=== PATIENT | female | born 1975 | race Caucasian/White ===

== ENCOUNTER 2018-03-02 06:13 | Inpatient (IN) | payer BC ==
[~2018-03-02 06:13] MED LIST: Buffered Lidocaine 0.9% SYRIN* 5 ML/SYR SYRINGE INTRADERM ONE; Dexamethasone IV* 4 MG/ML 1 ML (4 MG) IV SLOW PU ONE; Famotidine TAB* 20 MG PO ONE; Metoclopramide IV* 5 MG/ML 2 ML VIAL IV SLOW PU ONE
[2018-03-02] MEDS ORDERED: Metoclopramide IV* 5 MG/ML 2 ML VIAL ONE (06:23)
[2018-03-02] MEDS ORDERED: Famotidine TAB* 20 MG ONE (06:23)
[2018-03-02] MEDS ORDERED: Dexamethasone IV* 4 MG/ML 1 ML (4 MG) ONE (06:23)
[2018-03-02] MEDS ORDERED: NS 0.9% 50 ML* 50 ML with ceFOXitin(*) 2 GM IVPB ONE ×2 (07:00)
[2018-03-02] MEDS ORDERED: Bupivacaine 0.5%* 50 ML VIAL ONE (07:05)
[2018-03-02] MEDS ORDERED: Rocuronium* 10 MG/ML VIAL ONE (07:20)
[2018-03-02] MEDS ORDERED: fentaNYL* 50 MCG/ML 2 ML VIAL (100 MCG VIAL) ONE (07:20)
[2018-03-02] MEDS ORDERED: Midazolam* 1 MG/ML 2 ML VIAL (2 MG) ONE ×2 (07:20→07:52)
[2018-03-02] MEDS ORDERED: HYDROmorphone INJ* 1 MG/ML CARPUJECT SYRINGE ONE (07:55)
[2018-03-02] MEDS ORDERED: VASOPRESSIN 20 UNITS/ML 1 ML VIAL ONE ×2 (08:10→08:51)
[2018-03-02] MEDS ORDERED: oxyCODONE TAB* 5 MG TAB PO PRN ×2 (08:16)
[2018-03-02] MEDS ORDERED: Naloxone* 0.4 MG/ML 1 ML VIAL IV PRN (08:16)
[2018-03-02] MEDS ORDERED: Acetaminophen IV 1GM/100ML * 1,000 MG/100 ML VIAL IVPB ONE (08:16)
[2018-03-02] MEDS ORDERED: Scopolamine 1.5 mg* PATCH TRANSDERM PRN (08:16)
[2018-03-02] MEDS ORDERED: fentaNYL* 50 MCG/ML 2 ML VIAL (100 MCG VIAL) IV PRN (08:16)
[2018-03-02] MEDS ORDERED: HYDROmorphone INJ* 1 MG/ML CARPUJECT SYRINGE IV PRN (08:16)
[2018-03-02] MEDS ORDERED: Ondansetron INJ* 2 MG/ML VIAL IV PRN ×2 (08:16→10:06)
[2018-03-02] MEDS ORDERED: PROCHLORPERAZINE INJ 5 MG/ML 2 ML VIAL IV PRN (08:16)
[2018-03-02] MEDS ORDERED: diPHENhydraMINE IV* 50 MG/ML 1 ml VIAL (BENADRYL) IV PRN (08:16)
[2018-03-02] MEDS ORDERED: Ondansetron INJ* 2 MG/ML VIAL ONE ×2 (08:25→10:54)
[2018-03-02] MEDS ORDERED: Ketorolac INJ* 30 MG/ML 1 ML VIAL ONE (08:25)
[2018-03-02] MEDS ORDERED: Sugammadex * 200 MG/2 ML VIAL IV PUSH ONE (09:12)
[2018-03-02] MEDS ORDERED: oxyCODONE/Acetamin 5/325 MG* TAB PO PRN (10:00)
[2018-03-02] MEDS ORDERED: Simethicone TAB* 80 MG TAB.CHEW PO PRN (10:00)
[2018-03-02] MEDS: Ketorolac INJ* 30 MG/ML 1 ML VIAL IV PUSH SCH ×3 (11:59→23:20)
[2018-03-02] MEDS: oxyCODONE/Acetamin 5/325 MG* TAB PO PRN ×2 (14:08→21:32)
[2018-03-03] MEDS: Ketorolac INJ* 30 MG/ML 1 ML VIAL IV PUSH SCH (05:02)
[2018-03-03 05:57] LABS: ABS Basophils 0.1 10^3/ul (0-0.2); ABS Eosinophils 0 10^3/ul (0-0.6); ABS Lymphocytes 1.5 10^3/ul (1.0-4.8); ABS Monocytes 0.9 10^3/ul (0-0.8); ABS Neutrophils 6.2 10^3/ul (1.5-7.7); ABS Nucleated RBC 0 10^3/ul; Eosinophil % 0.2 % (0-6); Hematocrit 38 % (35-47); Hemoglobin 12.9 g/dl (12.0-16.0); Lymphocyte % 17.9 % (25-47); Mean Corpuscular HGB Conc 34 g/dl (31-36); Mean Corpuscular Hemoglobin 29 pg (27-31); Mean Corpuscular Volume 85 fL (80-97); Mean Platelet Volume 7.5 um3 (7.4-10.4); Nucleated Red Blood Cells % 0; Platelet Count 269 10^3/ul (150-450); Red Blood Count 4.42 10^6/ul (4.0-5.4); Red Cell Distribution Width 14 % (10.5-15); White Blood Count 8.6 10^3/ul (3.5-10.8)
[2018-03-03] MEDS: oxyCODONE/Acetamin 5/325 MG* TAB PO PRN ×2 (09:52→16:06)
[2018-03-03] MEDS ORDERED: Ibuprofen TAB* 600 MG PO SCH (12:00)
[2018-03-03 15:36] VITALS: BP 136/80
--- NOTE | 2018-03-03 20:04 | DS ---
DISCHARGE SUMMARY: DATE OF ADMISSION: 03/02/18 DATE OF DISCHARGE: 03/03/18 HOSPITAL COURSE: This patient is a 42-year-old 0, followed in the office with a large fibroid uterus. The patient eventually decided to proceed with hysterectomy. On the day of admission, the patient underwent an uncomplicated abdominal supracervical hysterectomy and bilateral salpingectomy. Operative findings were notable for extremely large uterus that extended up to the ribs. Innumerable fibroids were present of various sizes. Surgery was performed through a midline vertical incision that extended between the pubis and the umbilicus. The surgery went very well and the estimated blood loss was 250 cc. After an uncomplicated recovery, she was transferred to the postoperative [place]. On postoperative day #1, the patient was ambulating, tolerating a regular diet, voiding spontaneously and having excellent pain control with oral pain medications. Considering this, the patient desired to be discharged and she was discharged to home in good condition on postoperative day 1. DISCHARGE PHYSICAL EXAMINATION: Vital signs: Temperature 98.1, pulse 66, respiratory rate 16, blood pressure 136/80. General: The patient is in no acute distress, very comfortable. Seated in a chair. Chest: Clear to auscultation bilaterally. Cardiovascular: Normal sinus rhythm. Abdomen: Soft , modestly tender to palpation with the incision clean, dry and intact with Steri-strips in place. LABORATORY INFORMATION: Postoperative hematocrit 38, white blood cell count 8.6. DISCHARGE MEDICATIONS: Please see the medication reconciliation form. DISCHARGE INSTRUCTIONS: These were reviewed with the patient and written copy was provided as well. Please see the discharge instructions in the chart. DISCHARGE DIAGNOSIS: Large symptomatic fibroid uterus, status post uncomplicated abdominal supracervical hysterectomy and bilateral salpingectomy. [id number]/[facility] #: [id number] [facility]
--- NOTE | 2018-03-04 02:21 | OP ---
DATE OF OPERATION: 03/02/18 - ROOM #339 DATE OF : 71 SURGEON: Jose Floyd MD. TOOL ROOM LATHE OPERATOR: Dr. Garcia. ANESTHESIOLOGIST: Dr. Krueger. ANESTHESIA: General endotracheal. PRE-OP DIAGNOSIS: Large fibroid uterus. POST-OP DIAGNOSIS: Large fibroid uterus. PROCEDURE PERFORMED: Abdominal supracervical hysterectomy and bilateral salpingectomy. ESTIMATED BLOOD LOSS: 250 cc. IV FLUIDS: 1500 cc lactated Ringer's. URINE OUTPUT: 100 cc. MATERIALS TO LAB: Very large uterus and multiple fibroids and bilateral fallopian tubes. INDICATION: This patient is a 42-year-old 0, followed in the clinic for over a year with a known large fibroid uterus. The patient eventually desired to have treatment for this and after discussing her options, she desired to proceed with a supracervical hysterectomy. She received Lupron for 3 months prior to the surgery. However, this did not substantially decrease the size of the uterus. Of note, the patient did not have significant menstrual bleeding, but she had substantial abdominal pressure and discomfort at all times. She was extensively counseled and consent was signed. FINDINGS: Extremely large uterus extending nearly to the diaphragm with many innumerable fibroids of all sizes, as large as about 9 cm. Fallopian tubes and ovaries appeared normal. Uterus weighed in the operating room was 2270 g. COMPLICATIONS: None. DESCRIPTION OF PROCEDURE: The risks, benefits, and alternatives were described to the patient, and informed consent was obtained. The patient was taken to the operating room with IV running, where general anesthesia was induced and found to be adequate. The patient was prepped and draped in the normal sterile fashion in the supine position. A time-out was performed. A Tian catheter was placed during the prep. Considering the size of the uterus, a midline vertical incision was then made with a scalpel extending from about 1 cm below the umbilicus to about 2 cm above the pubic symphysis. This was carried down through the subcutaneous tissues using the Bovie. The fascia was then opened using the Bovie and the incision was extended using Bell scissors. The fascia was grasped with Wei clamps and elevated and the underlying rectus muscles were dissected off. The peritoneum was then grasped with Jocelyn clamps and entered sharply using Metzenbaum scissors. Once the incision had been sufficiently opened, a large Bay retractor was placed into the abdominal cavity and tightened down against the skin. The uterus was palpated and fibroids were palpable over the entirety of the uterus and extending especially high in the right upper quadrant. The uterus was able to be rotated so that the right ovary and fallopian tube could be visualized. The LigaSure Impact was then used to coagulate and transect the uteroovarian ligament, with good hemostasis. The right fallopian tube was also excised with the Impact. Care was taken to avoid the infundibulopelvic ligament. The round ligament was then opened with the Impact as well and the anterior broad ligament was opened using Metzenbaum scissors. A bladder flap was then created with this as well. The uterine vessels were then skeletonized with gentle dissection. Once they were identified, the Impact was used to coagulate them at multiple sites and then attention was then turned to the left side of the uterus. Again, the uterus was able to be rotated so that the ovarian tube were able to be grasped and manipulated. The Impact was used in a similar fashion to take down the uteroovarian ligament, fallopian tube, round ligament, and broad ligament. Again, the uterine vessels near the upper cervix were skeletonized and coagulated at multiple sites. Once there appeared to be good blanching of the uterus, both of the uterine vessel sites were coagulated again and then incised using the Impact. One site was under sufficient tension that a fairly large blood vessel became loose and this needed to be grasped and coagulated using the Impact as well. Once this was done, there was excellent hemostasis present. At that time, it appeared that the uterine blood supply was sufficiently disrupted. The myometrium was incised over some of the larger visible fibroids and the fibroids were dissected out and removed. Once a few of the largest fibroids that were accessible were removed the uterus was able to be pulled down towards the incision and delivered through it. The body of the uterus was then amputated from the cervix using the Bovie. The large uterus was then handed off as a specimen. The Impact was used to coagulate the lateral cervix again to ensure decreased vascularity of the cervical stump. The cervical canal was cauterized using the Bovie and then 0-Vicryl was used in a running fashion to oversew the cervical stump. One small area of bleeding in the left ovarian pedicle was identified and coagulated using the impact. At that time, both ovarian pedicles were hemostatic as well as the cervical stump. The abdomen was irrigated with saline. At that time, a size 1 Vicryl was used to reapproximate the fascia in a running fashion. Care was taken to incorporate the peritoneum in the suturing. Once this was complete, the subcutaneous tissues were copiously irrigated and made hemostatic using the Bovie. The skin was then closed with 4-0 Monocryl in a subcuticular stitch. Mastisol and Steri-Strips were then applied to the skin and a sterile bandage was placed. The patient was then allowed to awaken. She tolerated the procedure well. Sponge, lap, and needle counts were correct x2. [id number]/[facility] #: [id number] [facility]
[2018-03-05] MEDS ORDERED: Scopolamine PATCH Remove* 1 NOTE MISC PATCH OFF ONE (08:17)
== END 2018-03-03 17:30 | disposition home or self-care (01) | DRG 519 ==
LOC: AA 06:13 → SSU 11:05
PROVIDERS: ADMIT Obstetrics & Gynecology; ATTEND Obstetrics & Gynecology
PROC: 0UT70ZZ Resection of Bilateral Fallopian Tubes, Open Approach (ICD-10-PCS; 2018-03-02)
PROC: 0UT90ZL Resection of Uterus, Supracervical, Open Approach (ICD-10-PCS; principal; 2018-03-02 07:30)
DX: D25.9 Leiomyoma of uterus, unspecified (principal); N94.6 Dysmenorrhea, unspecified; E03.9 Hypothyroidism, unspecified; E66.3 Overweight; Z82.49 Family history of ischemic heart disease and other diseases of the circulatory system; Z80.0 Family history of malignant neoplasm of digestive organs; Z72.89 Other problems related to lifestyle; Z68.28 Body mass index [BMI] 28.0-28.9, adult
CPT/HCPCS: 36415; 81025; 85025; 88307; A9270-GY; J0694; J1100; J1170; J1885; J2250; J2405; J2765; J3010